=== PATIENT | female | born 1970 | race African-American/Black ===

== ENCOUNTER 2018-11-07 04:57 | Emergency (ER) | payer OTHER, MEDICAID ==
[~2018-11-07] VITALS: Ht 157.5 cm; Wt 63.0 kg
[2018-11-07] MEDS ORDERED: SODIUM CHLORIDE 0.9% 1,000 ML IV ONE (06:18)
[2018-11-07 06:24] VITALS: BP 105/69
== END 2018-11-07 06:44 | disposition left against medical advice (07) ==
LOC: ER 04:57
DX: R55 Syncope and collapse (principal); I95.9 Hypotension, unspecified; R94.31 Abnormal electrocardiogram [ECG] [EKG]; I10 Essential (primary) hypertension; R56.9 Unspecified convulsions; I47.1 Supraventricular tachycardia
CPT/HCPCS: 93005; 96360; 99283; J7030